=== PATIENT | female | born 1970 | race Two or more races ===

== ENCOUNTER 2019-03-10 14:17 | Outpatient (CLI) | payer BC, OTHER ==
[2019-03-10 15:09] LABS: CREATININE 0.9 mg/dL (0.6-1.3); MAGNESIUM 1.8 mg/dL (1.8-2.4); POTASSIUM 3.3 mmol/L (3.5-5.1); TOTAL PROTEIN, SERUM 8.3 g/dL (6.4-8.2)
[2019-03-10 15:34] LABS: THYROID STIMULATING HORMONE 0.016 mIU/mL (0.358-3.740)
== END 2019-03-10 23:59 | disposition home or self-care (01) ==
LOC: LAB 14:17
DX: M62.81 Muscle weakness (generalized) (principal); R53.83 Other fatigue
CPT/HCPCS: 36415; 82085; 83735; 84157; 84443; 84520